=== PATIENT | female | born 1995 | race Caucasian/White ===

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

== ENCOUNTER 2017-02-16 21:14 | Outpatient (CLI) | payer MEDICAID ==
[~2017-02-16] VITALS: Ht 160 cm; Wt 64.2 kg
[~2017-02-16 21:14] MED LIST changes: -CEPH-443 PO; -NAPR-260 PO
[2017-02-16 22:00] VITALS: BP 109/59; PULSE 88
[2017-02-16] MEDS ORDERED: FOLI0.8C PO (22:04)
[2017-02-16] MEDS ORDERED: FERR134T PO (22:04)
[2017-02-16] MEDS ORDERED: CALC600T5 PO (22:04)
[2017-02-17 00:12] LABS: ADD UMIC YES; UR ASCORBIC ACID 40 mg/dL (NEGATIVE); UR BACTERIA FEW /HPF (NONE SEEN); UR BILIRUBIN (Dip) NEGATIVE (NEGATIVE); UR BLOOD (Dip) NEGATIVE (NEGATIVE); UR CLARITY CLOUDY (CLEAR); UR COLOR AMBER (YELLOW); UR GLUCOSE (Dip) NEGATIVE (NEGATIVE); UR KETONES (Dip) TRACE mg/dL (NEGATIVE); UR LEUKOCYTE ESTERASE (Dip) 2+ Leu/ul (NEGATIVE); UR MUCUS FEW /HPF (NONE SEEN); UR NITRITE (Dip) NEGATIVE (NEGATIVE); UR RBC 2 /HPF (0-5); UR SPECIFIC GRAVITY (Dip) 1.028 (1.003-1.030); UR SQUAMOUS EPITHELIAL CELL MANY /HPF (FEW); UR TOTAL PROTEIN (Dip) 1+ mg/dl (NEGATIVE); UR UROBILINOGEN (Dip) NEGATIVE (NEGATIVE)
--- NOTE | 2017-02-17 00:19 | RADRPT ---
PROCEDURE: Obstetrical ultrasound greater than 14 weeks CLINICAL INDICATION: labor. Evaluate amniotic fluid index TECHNIQUE: Real time sonographic imaging of the gravid uterus is performed transabdominally and mu ltiple static means scale and Doppler images are submitted for review as are measurements. The image s are reviewed on the PACS. COMPARISON: 09/26/2016 FINDINGS: The cervical os is closed with a normal cervical length of 3.1 cm. There is a single living intrauterine gestation in breech presentation. The heart beat is est imated at 154 bpm. Placenta is fundal and grade 1. There is no evidence of placenta previa or abruption. The amniotic fluid index is normal estimated at 14.16 cm. RPTAT:HJJR IMPRESSION: 1. Single viable intrauterine gestation in breech presentation, the cervical length estimated at 3.1 cm. 2. Normal amniotic fluid index of 14.1 cm. Physician Kristen Date Time Electronically viewed and signed by Physician Kristen on 02/17/2017 00:19 /
--- NOTE | 2017-02-17 03:54 | PN ---
Triage Information Date/Time February 17, 2017 Weeks of Gestation 29 weeks and 3 days : 1 Para: 0 Diabetes: none Hypertention: none Additional information 21-year-old with IUP at 29 weeks and 3 days presented with complaint of cramping and small amount of pinkish discharge after she wiped herself today. She reports her pain 7 out of 10. She denies any leaking of fluid. She denies any decreased movement. Patient reports that she had been hospitalized at [facility] for 3 days and about 2 weeks ago and she was discharged from the hospital. She was admitted for labor. Status post 2 doses of steroid. Records from [facility] obtained and confirmed. Objective Vital Signs Date Time Temp Pulse Resp B/P Pulse Ox O2 Delivery O2 Flow Rate FiO2 02/16/17 22:00 98.4 88 109/59 Room Air Heart Rate: 130's Contractions: >10 Minutes Apart Exam There is occasional contraction with some irritability noted in NST. General appearance: Alert and oriented 4. Patient does not appear to be in acute distress. Abdomen: Soft, gravid, nontender, fundal height consistent with gestational age. UA: Consistent with UTI NST: Category 1. Patient received p.o. hydration and a dose of Tylenol for her symptoms resolved. She denied any pain after adequate p.o. hydration Transvaginal cervical length performed that showed long cervix. Results/Medications Results 24 hrs Laboratory Tests Test 02/16/17 21:50 Urine Color PRAMOD Urine Clarity CLOUDY A Urine pH 6.0 Urine Specific [place] 1.028 Urine Ketones TRACE A Urine Nitrite NEGATIVE Urine Bilirubin NEGATIVE Urine Urobilinogen NEGATIVE Urine Leukocyte Esterase 2+ H Urine Microscopic RBC 2 Urine Microscopic WBC 41 H Urine Squamous Epithelial Cells MANY A Urine Bacteria FEW A Urine Mucus FEW A Urine Hemoglobin NEGATIVE Urine Glucose NEGATIVE Urine Total Protein 1+ H Imaging Results PROCEDURE: Obstetrical ultrasound greater than 14 weeks CLINICAL INDICATION: labor. Evaluate amniotic fluid index TECHNIQUE: Real time sonographic imaging of the gravid uterus is performed transabdominally and multiple static means scale and Doppler images are submitted for review as are measurements. The images are reviewed on the PACS. COMPARISON: 09/26/2016 FINDINGS: The cervical os is closed with a normal cervical length of 3.1 cm. There is a single living intrauterine gestation in breech presentation. The heart beat is estimated at 154 bpm. Placenta is fundal and grade 1. There is no evidence of placenta previa or abruption. The amniotic fluid index is normal estimated at 14.16 cm. RPTAT:HJJR IMPRESSION: 1. Single viable intrauterine gestation in breech presentation, the cervical length estimated at 3.1 cm. 2. Normal amniotic fluid index of 14.1 cm. Assessment/Plan IUP at 29 weeks and 3 days Uterine contraction. No evidence of labor Contractions due to UTI. Resolved with p.o. hydration and Tylenol We will treat with Keflex 500 mg p.o. 4 times daily for 7 days labor precaution and kick count and follow-up with her OB office in 1-2 days after discharge discussed. Advise about adequate p.o. hydration Patient verbalized understanding. ALYSON BARAJAS MD Feb 17, 2017 03:54
--- NOTE | 2017-02-17 04:27 | TRIAGE ---
OB Triage Datetime Report Generated by CPN: 02/17/2017 04:27 Datetime: 02/16/2017 22:57 Stage of : OB Triage Monitor Mode: External Quality: Mild Pattern: Normal: <= 5 Contractions in 10 Minutes Resting Tone [place]: Relaxed Heart Rate FHR Baseline Rate: 150 Monitor Mode: External US FHR Baseline Changes: No Baseline Change Variability: Moderate 6-25 bpm Datetime: 02/16/2017 22:38 Stage of : OB Triage Datetime: 02/16/2017 22:10 Stage of : OB Triage Monitor Mode: External Quality: Mild Pattern: Normal: <= 5 Contractions in 10 Minutes Resting Tone [place]: Relaxed Heart Rate FHR Baseline Rate: 150 Monitor Mode: External US FHR Baseline Changes: No Baseline Change Variability: Moderate 6-25 bpm Decelerations: Late Category: Category II Datetime: 02/16/2017 21:48 Time of Arrival: 02/16/2017 21:07 EGA: 29.3 Arrived By: Wheelchair Arrived From: Home Chief Complaint: w/ stated hx PTL c/o cramping and spotting Movement: Present Contractions: Irregular Time Contractions Began: 02/16/2017 20:00 Contractions: q10-15 Rupture of Membranes: Denies Vaginal Bleeding: Scant Vaginal Discharge: Present Recent Sexual Intercouse: Denies Abdominal Trauma: Not Applicable Patient Complaints: Cramping Additional Patient Complaints: Hx asthma. States was told LEATHA was 24 on 02/03 Time Provider Notified: 02/16/2017 22:57 Provider Notified: Dr Desouza Initial Plan: EFM, CVL,BPP, PO hydration Datetime: 02/16/2017 21:32 Stage of : OB Triage Maternal Assessment Level of Consciousness: Fully Conscious Headache: Denies Blurred Vision: No Respiratory Effort: Unlabored Nausea/Vomiting: Denies RUQ Epigastric Pain: Denies Facial Edema: None Labor Evaluation Frequency: placed Monitor Mode: External Resting Tone [place]: Relaxed Monitor Mode: External US Comments: FHT 150 Pain Assessment Pain Scale: 7 Pain Presence: Intermittent Pain Type: Cramping Pain Location: Abdomen Datetime: 12/22/2016 18:55 Stage of : OB Triage Maternal Assessment Level of Consciousness: Fully Conscious DTR's/Clonus: DTRs 1+ Headache: Denies Breath Sounds, Left: Clear and Equal Breath Sounds, Right: Clear and Equal Nausea/Vomiting: Denies RUQ Epigastric Pain: Denies Labor Evaluation Frequency: IRRITABILITY Monitor Mode: External Quality: Mild Pattern: Normal: <= 5 Contractions in 10 Minutes Heart Rate FHR Baseline Rate: 150 Monitor Mode: Doppler Pain Assessment Pain Scale: 4 Pain Presence: Constant Pain Type: Ache Pain Location: Left Flank Pain Goal: 3 Vaginal Exam Membrane Status: Intact Datetime: 12/22/2016 18:00 Stage of : OB Triage Maternal Assessment Level of Consciousness: Fully Conscious DTR's/Clonus: DTRs 1+ Headache: Denies Breath Sounds, Left: Clear and Equal Breath Sounds, Right: Clear and Equal Nausea/Vomiting: Denies RUQ Epigastric Pain: Denies Labor Evaluation Frequency: IRRITABILITY Monitor Mode: External Quality: Mild Pattern: Normal: <= 5 Contractions in 10 Minutes Heart Rate FHR Baseline Rate: 150 Monitor Mode: Doppler Pain Assessment Pain Scale: 4 Pain Presence: Constant Pain Type: Ache Pain Location: Left Flank Pain Goal: 3 Vaginal Exam Membrane Status: Intact Datetime: 12/22/2016 17:00 Heart Rate FHR Baseline Rate: 150 Monitor Mode: Doppler Datetime: 12/22/2016 16:11 Fall Risk Assessment Fall Score: 0 Fall Risk Score Definition: No Risk: No action required Datetime: 12/22/2016 16:10 EGA: 21.3
== END 2017-02-17 02:50 | disposition home or self-care (01) ==
LOC: OBT 21:14 → L-D 21:14 → OBT 02-17 02:50
PROVIDERS: ATTEND Obstetrics & Gynecology
DX: O26.893 Other specified pregnancy related conditions, third trimester (principal); Z3A.29 29 weeks gestation of pregnancy; R10.9 Unspecified abdominal pain; N89.8 Other specified noninflammatory disorders of vagina
CPT/HCPCS: 36415; 76815; 76817; 81001; Z7500; G0463

== ENCOUNTER 2017-03-31 11:07 | Outpatient (CLI) | payer MEDICAID ==
[~2017-03-31] VITALS: Ht 162.6 cm; Wt 68.2 kg
[~2017-03-31 11:07] MED LIST changes: -ACET500C5 PO; +CALC600T5 PO; +FERR134T PO; +FOLI0.8C PO; -PRENAT PO
[2017-03-31 11:44] VITALS: BP 101/58; PULSE 85; Ht 162.6 cm; Wt 68.2 kg
--- NOTE | 2017-03-31 12:48 | RADRPT ---
PROCEDURE: US OB biophysical profile. CLINICAL INDICATION: labor TECHNIQUE: Multiple sonographic images of the pelvis were obtained. The images were reviewed on a PACS workstation. COMPARISON: No prior studies are available for comparison. FINDINGS: There is a single viable intrauterine gestation. Cardiac activity is present with 157 beats per min [place]. There is a vertex presentation. The placenta is fundal. There is no evidence of placental abruption. There is a normal amount of amniotic fluid with an LEATHA = 16.1 cm. Biophysical profile: movement 2/2 tone 2/2. breathing 2/2 LEATHA 2/2 Total 03/24 RPTAT: AA . IMPRESSION: Normal biophysical profile. Physician Brandon Date Time Electronically viewed and signed by Physician Brandon on 03/31/2017 12:48 /
[2017-03-31] MEDS ORDERED: LACTATED RINGER'S 1,000 ML IV SCH (13:00)
[2017-03-31] MEDS ORDERED: TERBUTALINE 1 MG/ML INJ SC ONE (17:30)
--- NOTE | 2017-03-31 17:50 | PN ---
Triage Information Date/Time 36 weeks complaining of low back pain pelvic examination cervix long and closed vertex is -2 station biophysical profile 03/24 patient discharged home with labor instructions for follow-up at the clinic or if contractions more regular or stronger return to the hospital Reason for visit: Weeks of Gestation 36 /Para Diabetes: none Hypertention: none Objective Vital Signs Date Time Temp Pulse Resp B/P Pulse Ox O2 Delivery O2 Flow Rate FiO2 03/31/17 11:44 97.6 85 101/58 Heart Rate: 130's Contractions: None Results/Medications Medications Current Medications Lactated Ringer's (Lr) 1,000 ml @ 125 mls/hr Q8H IV Last administered on t 13:17; Admin Dose 125 MLS/HR; Start 03/31/17 at 13:00 Disposition: Discharge JOHN LOCKHART MD Mar 31, 2017 17:50
== END 2017-03-31 17:55 | disposition home or self-care (01) ==
LOC: OBT 11:07 → L-D 11:07 → OBT 17:55
PROVIDERS: ATTEND Obstetrics & Gynecology
DX: O26.893 Other specified pregnancy related conditions, third trimester (principal); Z3A.36 36 weeks gestation of pregnancy; M54.5 Low back pain
CPT/HCPCS: 36415; 76818; 96360; 96361; 96372; J3105; J7120; Z7500; G0463

== ENCOUNTER 2017-04-25 08:17 | Inpatient (IN) | payer MEDICAID ==
[~2017-04-25] VITALS: Ht 162.6 cm; Wt 72.0 kg
[2017-04-25 08:41] VITALS: Ht 162.6 cm; Wt 72.0 kg
--- NOTE | 2017-04-25 10:27 | TRIAGE ---
OB Triage Datetime Report Generated by CPN: 04/25/2017 10:27 Datetime: 04/25/2017 10:20 Vaginal Exam Dilatation (cms): 3.0 Effacement (%): 70 Station: -1 Exam By: [facility] Membrane Status: Ruptured Membranes Rupture Method: Artificial Amniotic Fluid Color: Clear Amniotic Fluid Amount: Moderate Datetime: 04/25/2017 10:00 Labor Evaluation Frequency: 2-6 Monitor Mode: External Duration (sec)2399: 40-180 Quality: Moderate Pattern: Normal: <= 5 Contractions in 10 Minutes Resting Tone [place]: Relaxed Heart Rate FHR Baseline Rate: 140 Monitor Mode: External US FHR Baseline Changes: No Baseline Change Variability: Moderate 6-25 bpm Accelerations: 15X15 Decelerations: None Category: Category I Pain Assessment Pain Scale: 4 Pain Presence: Intermittent Pain Type: Contraction; Ache Pain Location: Abdomen Pain Goal: 2 Pain Relief Measures: Comfort Measures Datetime: 04/25/2017 09:00 Labor Evaluation Frequency: OCC Monitor Mode: External Duration (sec)2399: 50-120 Quality: Moderate Pattern: Normal: <= 5 Contractions in 10 Minutes Resting Tone [place]: Relaxed Contraction Comments: Uterine irritability noted Heart Rate FHR Baseline Rate: 140 Monitor Mode: External US FHR Baseline Changes: No Baseline Change Variability: Moderate 6-25 bpm Accelerations: 15X15 Decelerations: None Category: Category I Datetime: 04/25/2017 08:42 Time of Arrival: 04/25/2017 07:55 EGA: 39.4 Arrived By: Ambulatory Arrived From: Home Chief Complaint: R/O Labor Movement: Present Contractions: Denies/Absent Rupture of Membranes: Denies Vaginal Bleeding: Normal Show Vaginal Discharge: Denies Recent Sexual Intercouse: Denies Abdominal Trauma: Not Applicable Patient Complaints: Contractions Time Provider Notified: 04/25/2017 09:55 Provider Notified: [facility] Initial Plan: NST, VE Datetime: 04/25/2017 08:40 Assessment Type: Triage Maternal Assessment Level of Consciousness: Fully Conscious DTR's/Clonus: DTRs 2+; No Clonus Headache: Denies Blurred Vision: No Respiratory Effort: Unlabored; Regular Rhythm; Equal Expansion Breath Sounds, Left: Clear and Equal Breath Sounds, Right: Clear and Equal Nausea/Vomiting: Denies RUQ Epigastric Pain: Denies Lower Extremities Edema: Bilateral Lower Extremities Degree: 1+ Upper Extremities Edema: None Degree: None Facial Edema: None Fall Risk Assessment History of Falling: (0) No Secondary Diagnosis: (0) No Ambulatory Aid: (0) Bedrest/Nurse Assist IV Therapy: (0) No Gait: (0) Normal/Bedrest/Immobile Mental Status: (0) Oriented to Own Ability Fall Score: 0 Fall Risk Score Definition: No Risk: No action required Datetime: 04/25/2017 08:39 Vaginal Exam Dilatation (cms): 2.0 Effacement (%): 50 Station: -3 Exam By: Melanie RN Datetime: 04/09/2017 10:10 Vaginal Exam Dilatation (cms): 1.5 Effacement (%): 50 Station: -3 Exam By: Dilia JUAREZ RN Membrane Status: Intact Datetime: 03/31/2017 17:43 Stage of : OB Triage Datetime: 03/31/2017 16:52 Labor Evaluation Frequency: 2-6 Monitor Mode: External Duration (sec)2399: 40-50 Pattern: Normal: <= 5 Contractions in 10 Minutes Resting Tone [place]: Relaxed Contraction Comments: STATES BARELY FEELS Heart Rate FHR Baseline Rate: 145 Monitor Mode: External US Variability: Moderate 6-25 bpm Decelerations: None Category: Category I Pain Assessment Pain Scale: 3 Pain Presence: Intermittent Pain Type: Cramping Pain Location: Abdomen Pain Goal: 3 Pain Relief Measures: Comfort Measures Datetime: 03/31/2017 15:51 Labor Evaluation Frequency: 4-5 Monitor Mode: External Duration (sec)2399: 50-60 Pattern: Normal: <= 5 Contractions in 10 Minutes Resting Tone [place]: Relaxed Heart Rate FHR Baseline Rate: 145 Monitor Mode: External US Variability: Moderate 6-25 bpm Accelerations: 10X10 Decelerations: None Category: Category I Pain Assessment Pain Scale: 4 Pain Presence: Intermittent Pain Type: Cramping Pain Goal: 3 Pain Relief Measures: Comfort Measures Datetime: 03/31/2017 14:48 Labor Evaluation Frequency: 3-5 Monitor Mode: External Duration (sec)2399: 50-60 Quality: Mild Pattern: Normal: <= 5 Contractions in 10 Minutes Resting Tone [place]: Relaxed Heart Rate FHR Baseline Rate: 135 Monitor Mode: External US Variability: Moderate 6-25 bpm Decelerations: None Category: Category II Pain Assessment Pain Scale: 4 Pain Presence: Intermittent Pain Type: Cramping Pain Location: Abdomen Pain Goal: 3 Datetime: 03/31/2017 13:40 Labor Evaluation Frequency: 4-6 Monitor Mode: External Duration (sec)2399: 40-60 Pattern: Normal: <= 5 Contractions in 10 Minutes Resting Tone [place]: Relaxed Heart Rate FHR Baseline Rate: 140 Monitor Mode: External US Variability: Moderate 6-25 bpm Decelerations: None Category: Category II Pain Assessment Pain Scale: 4 Pain Presence: Intermittent Pain Type: Cramping Pain Location: Abdomen Pain Goal: 3 Pain Relief Measures: Comfort Measures Datetime: 03/31/2017 12:43 Labor Evaluation Frequency: 4-6 Monitor Mode: External Duration (sec)2399: 40-60 Quality: Mild Pattern: Normal: <= 5 Contractions in 10 Minutes Resting Tone [place]: Relaxed Heart Rate FHR Baseline Rate: 150 Monitor Mode: External US Variability: Moderate 6-25 bpm Accelerations: 10X10 Decelerations: None Category: Category I Pain Assessment Pain Scale: 4 Pain Presence: Intermittent Pain Type: Cramping Pain Location: Abdomen Pain Goal: 3 Pain Relief Measures: Comfort Measures Datetime: 03/31/2017 12:27 Stage of : OB Triage Datetime: 03/31/2017 11:52 Stage of : OB Triage Datetime: 03/31/2017 11:40 Stage of : OB Triage Assessment Type: Triage Maternal Assessment Level of Consciousness: Fully Conscious DTR's/Clonus: DTRs 2+; No Clonus Headache: Denies Blurred Vision: No Respiratory Effort: Unlabored; Regular Rhythm; Equal Expansion Breath Sounds, Left: Clear and Equal Breath Sounds, Right: Clear and Equal Nausea/Vomiting: Denies RUQ Epigastric Pain: Denies Facial Edema: None Temperature Route: Axillary Fall Risk Assessment History of Falling: (0) No Secondary Diagnosis: (0) No Ambulatory Aid: (0) Bedrest/Nurse Assist IV Therapy: (0) No Gait: (0) Normal/Bedrest/Immobile Mental Status: (0) Oriented to Own Ability Fall Score: 0 Fall Risk Score Definition: No Risk: No action required Labor Evaluation Frequency: 5-7 Monitor Mode: External Duration (sec)2399: 50-60 Quality: Mild Pattern: Normal: <= 5 Contractions in 10 Minutes Resting Tone [place]: Relaxed Heart Rate FHR Baseline Rate: 140 Monitor Mode: External US Variability: Moderate 6-25 bpm Decelerations: Variable Category: Category II Pain Assessment Pain Scale: 6 Pain Presence: Intermittent Pain Type: Cramping; Contraction Pain Location: Abdomen; Back Pain Goal: 3 Pain Relief Measures: Comfort Measures Datetime: 03/31/2017 11:38 Time of Arrival: 03/31/2017 10:58 EGA: 36.0 Arrived By: Ambulatory Arrived From: Home Chief Complaint: BACK PAIN, DENIES BLEEDING OR LEAKING OF FLUID Movement: Decreased Contractions: Irregular Contractions: 5-6 Rupture of Membranes: Denies Vaginal Bleeding: None Vaginal Discharge: Denies Recent Sexual Intercouse: Denies Abdominal Trauma: Not Applicable Patient Complaints: Contractions; Cramping Time Provider Notified: 03/31/2017 11:55 Provider Notified: [facility] Initial Plan: MONITOR, IV HYDRATION, BPP, TERB X1 Datetime: 02/17/2017 02:37 Stage of : OB Triage Heart Rate FHR Baseline Rate: 145 FHR Baseline Changes: No Baseline Change Variability: Moderate 6-25 bpm Decelerations: None Datetime: 02/17/2017 01:56 Stage of : OB Triage Datetime: 02/17/2017 01:51 Stage of : OB Triage Quality: Mild Pattern: Normal: <= 5 Contractions in 10 Minutes Resting Tone [place]: Relaxed Heart Rate FHR Baseline Rate: 155 Monitor Mode: External US FHR Baseline Changes: No Baseline Change Variability: Moderate 6-25 bpm Category: Category I Datetime: 02/17/2017 00:46 Stage of : OB Triage Monitor Mode: External Quality: Mild Pattern: Normal: <= 5 Contractions in 10 Minutes Resting Tone [place]: Relaxed Heart Rate FHR Baseline Rate: 140 Monitor Mode: External US FHR Baseline Changes: No Baseline Change Variability: Moderate 6-25 bpm Category: Category I Pain Assessment Pain Scale: 0 Pain Presence: None/Denies Pain Type: N/A Datetime: 02/17/2017 00:00 Labor Evaluation Frequency: 2-10 Monitor Mode: External Duration (sec)2399: 20-40sec Quality: Mild Pattern: Normal: <= 5 Contractions in 10 Minutes Resting Tone [place]: Relaxed Heart Rate FHR Baseline Rate: 150 Monitor Mode: External US FHR Baseline Changes: No Baseline Change Variability: Moderate 6-25 bpm Datetime: 02/16/2017 23:37 Monitor Mode: External Quality: Mild Pattern: Normal: <= 5 Contractions in 10 Minutes Resting Tone [place]: Relaxed Heart Rate FHR Baseline Rate: 150 Monitor Mode: External US FHR Baseline Changes: No Baseline Change Variability: Moderate 6-25 bpm Datetime: 02/16/2017 21:48 EGA: 29.6 Datetime: 12/22/2016 16:11 Fall Score: 0 Fall Risk Score Definition: No Risk: No action required Datetime: 12/22/2016 16:10 EGA: 21.6
[2017-04-25] MEDS ORDERED: LACTATED RINGER'S 1,000 ML IV PRN (10:50)
[2017-04-25] MEDS ORDERED: IBUPROFEN 600 MG TAB PO PRN (11:00)
[2017-04-25] MEDS ORDERED: METHYLERGONOVINE 0.2 MG INJ IM PRN (11:00)
[2017-04-25] MEDS ORDERED: MISOPROSTOL 200 MCG TAB PR PRN (11:00)
[2017-04-25] MEDS ORDERED: CARBOPROST 250 MCG INJ IM PRN (11:00)
[2017-04-25] MEDS ORDERED: LIDOCAINE 1% (MPF) 30 ML INJ INJ PRN (11:00)
[2017-04-25] MEDS ORDERED: BUTORPHANOL 2 MG INJ IV PRN (11:00)
[2017-04-25] MEDS ORDERED: OXYTOCIN 30 UNITS/LR 500 ML IV SCH ×3 (11:00)
[2017-04-25] MEDS ORDERED: OXYTOCIN 30 UNITS/LR 500 ML IV PRN (11:00)
[2017-04-25] MEDS: LACTATED RINGER'S 1,000 ML IV SCH ×3 (11:22→20:55)
[2017-04-25 11:48] LABS: BASOPHILS % 0.2 % (0.0-2.0); EOSINOPHILS # 0.1 10^3/ul (0.0-0.5); EOSINOPHILS % 1.5 % (0.0-7.0); HEMATOCRIT 32.7 % (37.0-47.0); HEMOGLOBIN 10.2 g/dl (12.0-16.0); LYMPHOCYTES # 1.9 10^3/ul (0.8-2.9); LYMPHOCYTES % 23.4 % (18.0-55.0); MEAN CORPUSCULAR HEMOGLOBIN 25.6 pg (29.0-33.0); MEAN CORPUSCULAR HGB CONC 31.2 g/dl (32.0-37.0); MEAN CORPUSCULAR VOLUME 82.2 fl (72.0-104.0); MEAN PLATELET VOLUME 12.4 fl (7.4-10.4); MONOCYTE # 0.8 10^3/ul (0.3-0.9); NEUTROPHILS % 63.7 % (30.0-74.0); PLATELET COUNT 184 10^3/UL (140-415); RED BLOOD COUNT 3.98 10^6/ul (4.20-5.40); RED CELL DISTRIBUTION WIDTH 14.8 % (11.5-14.5); WHITE BLOOD COUNT 8.2 10^3/ul (4.8-10.8)
[2017-04-25 12:00] LABS: INR 0.91; PROTIME 12.2 Sec (12.2-14.2)
[2017-04-25 12:01] LABS: PARTIAL THROMBOPLASTIN TIME 29.1 Sec (25.0-35.0)
[2017-04-25] MEDS ORDERED: ONDANSETRON 4 MG INJ IV PRN (17:00)
[2017-04-25] MEDS ORDERED: EPHEDrine SULFATE 50 MG/5 ML SYG IV PRN (17:00)
[2017-04-25] MEDS ORDERED: DIPHENHYDRAMINE 50 MG INJ IV PRN (17:00)
[2017-04-25] MEDS ORDERED: NALOXONE (0.4 MG/ML) INJ IV PRN (17:00)
[2017-04-25] MEDS: FENTAnyl 2MCG/ML-ROPIV 0.2% 100 ML BAG EPI SCH ×2 (17:18→23:23)
[2017-04-25] MEDS ORDERED: ALBUTEROL 18 GM INHALER INH ONE (18:30)
[2017-04-25] MEDS ORDERED: TERBUTALINE 1 MG/ML INJ SC ONE (22:30)
[2017-04-25] MEDS ORDERED: MINERAL OIL LIGHT 10 ML VIAL TOP PRN (22:30)
[2017-04-25] MEDS ORDERED: MINERAL OIL LIGHT 10 ML VIAL ONE (22:47)
[2017-04-26] MEDS: LACTATED RINGER'S 1,000 ML IV SCH (01:35)
--- NOTE | 2017-04-26 07:06 | LDN ---
Date/Time of Note Date/Time of Note DATE: 04/26/17 TIME: 07:02 Delivery Summary Vacuum assisted vaginal delivery for OP position of a viable baby girl weighing 8# 10 oz, 20" long and with Apgars of 8/9. Weeks of Gestation 39w 5d Assisted Vaginal Delivery: Vacuum Placenta Delivered: Spontaneously Meconium: none Episiotomy: No Perineal laceration: 2 Laceration repair: SECOND DEGREE PERINEAL LACERATION REPAIRED WITH 2-0 CHROMIC. Anesthesia type: Epidural Estimated blood loss: 350 Sponge & Needle done & correct: Yes All needle counts correct: Yes Any foreign bodies felt in the: No (vagina) Problems: Infant Delivery Information Sex Infant Sex: female Apgars 1 Minute: 8 5 Minute: 9 Suctioning Nose & mouth suctioned at nithya: Yes Delee suction performed: No Umbilical Cord Umbilical cord with: 3 Vessels Cord presentations: no nuchal cord Cord Blood was obtained: Yes Mother & Baby Disposition Disposition Mom & Baby to Maternity; Good: Yes Baby to NICU: No MARGARITO ADKINS MD Apr 26, 2017 07:06
[2017-04-26] MEDS: LACTATED RINGER'S 1,000 ML IV* SCH ×2 (07:12→15:12)
[2017-04-26] MEDS ORDERED: LACTATED RINGER'S 1,000 ML IV* SCH (07:12)
--- NOTE | 2017-04-26 07:12 | HP ---
Date/Time of Note Date/Time of Note DATE: 04/26/17 TIME: 07:06 OB - History Hx of Present Free Text/Dictation 22 y.o. G1 with an IUP at 39w 5d came in in labor. Chief Complaint: Labor. Estimated Due Date: Apr 28, 2017 : 1 Para: 0 Care: Good Care Ultrasounds: Normal mid trimester US Obstetrical Complications: None Medical Complications: None Other Concerns: PMHx: asthma. PSHx: none. All: PCN. Past Family/Social History * Past Medical, Surgical, Family and Obstetric Histories reviewed from chart. Blood Type: O+ Rubella: immune RPR/VDRL: Negative GBS Status: Negative HBsAG: Negative OB Admission Exam Vital Signs Vital Signs 122/74 98.5 Physical Exam HEENT: WNL Heart: Rhythm Normal Lungs: Clear Abdomen: WNL Extremities: Normal Reflexes: Normal Cervical Dilatation: 2cm Effacement: 50% Station: -3 Membranes: Intact Amniotic Fluid: Clear Heart Rate: 150's Accelerations: Accelerations Present Decelerations: Variable Decelerations Varibility: Moderate Contractions on Admission: < 5 Minutes Apart Last 72 hourBlood Glucose Bedside Glucose - 72 Hours Test 04/26/17 04:53 Bedside Glucose 118mg/dL (70-220) Last 72 hours Lab Results CBC & BMP 04/25/17 11:00 OB Assessment/Plan Other Assessment: Labor. Plan: Other (Augmentation of labor.) Induction Method: per Pitocin Protocol MARGARITO ADKINS MD Apr 26, 2017 07:12
[2017-04-26] MEDS ORDERED: MISOPROSTOL 200 MCG TAB PR PRN ×2 (07:30)
[2017-04-26] MEDS ORDERED: OXYTOCIN 30 UNITS/LR 500 ML IV SCH (07:30)
[2017-04-26] MEDS ORDERED: OXYTOCIN 30 UNITS/LR 500 ML IV PRN ×2 (07:30)
[2017-04-26] MEDS ORDERED: LANOLIN 7 GM TUBE TOP PRN (07:30)
[2017-04-26] MEDS ORDERED: CARBOPROST 250 MCG INJ IM PRN ×2 (07:30)
[2017-04-26] MEDS ORDERED: METHYLERGONOVINE 0.2 MG INJ IM PRN ×2 (07:30)
[2017-04-26 08:50] VITALS: BP 130/73; PULSE 81; RESP 18
[2017-04-26] MEDS: BENZOCAINE 20% 56 ML SPRAY TOP PRN (10:00)
[2017-04-26 11:30] VITALS: BP 125/73; PULSE 97; RESP 18
[2017-04-26] MEDS: IBUPROFEN 600 MG TAB PO SCH ×2 (12:18→17:45)
[2017-04-26 16:00] VITALS: BP 125/73; PULSE 94; RESP 18
[2017-04-26] MEDS ORDERED: ALBUTEROL 18 GM INHALER INH PRN (17:30)
[2017-04-26 20:30] VITALS: BP 121/74; PULSE 92; RESP 18
[2017-04-27] MEDS: IBUPROFEN 600 MG TAB PO SCH ×4 (00:10→17:41)
[2017-04-27 04:00] VITALS: BP 110/56; PULSE 83; RESP 18
[2017-04-27 08:41] LABS: BASOPHILS % 0.2 % (0.0-2.0); EOSINOPHILS # 0.1 10^3/ul (0.0-0.5); EOSINOPHILS % 0.7 % (0.0-7.0); HEMATOCRIT 25.6 % (37.0-47.0); HEMOGLOBIN 8.3 g/dl (12.0-16.0); LYMPHOCYTES # 2.5 10^3/ul (0.8-2.9); LYMPHOCYTES % 15.6 % (18.0-55.0); MEAN CORPUSCULAR HEMOGLOBIN 26.8 pg (29.0-33.0); MEAN CORPUSCULAR HGB CONC 32.4 g/dl (32.0-37.0); MEAN CORPUSCULAR VOLUME 82.6 fl (72.0-104.0); MEAN PLATELET VOLUME 12.4 fl (7.4-10.4); MONOCYTE # 1.3 10^3/ul (0.3-0.9); MONOCYTES % 7.9 % (0.0-13.0); NEUTROPHILS % 74.5 % (30.0-74.0); PLATELET COUNT 158 10^3/UL (140-415); RED CELL DISTRIBUTION WIDTH 15.2 % (11.5-14.5); WHITE BLOOD COUNT 16.2 10^3/ul (4.8-10.8)
[2017-04-27 08:45] VITALS: BP 102/55; PULSE 82; RESP 19
[2017-04-27] MEDS: HYDROCODONE/APAP (5/325) TAB PO PRN ×2 (09:12→12:57)
[2017-04-27 15:45] VITALS: BP 100/59; PULSE 82; RESP 18
--- NOTE | 2017-04-27 18:21 | QN ---
Documentation Comment No complaint Afebrile VSS Fundus firm Lochia scant Perineum edematous PPD #1 Stable Continue present care. MANOLO WIGGINS MD Apr 27, 2017 18:21
[2017-04-27] MEDS ORDERED: MAGNESIUM HYDROXIDE 30ML CUP PO ONE (18:30)
[2017-04-27 19:55] VITALS: BP 115/65; PULSE 86; RESP 18
[2017-04-27] MEDS: SENNA TAB PO SCH (21:39)
[2017-04-28] MEDS: IBUPROFEN 600 MG TAB PO SCH ×3 (00:05→12:30)
[2017-04-28 04:10] VITALS: BP 104/63; PULSE 86; RESP 18
[2017-04-28 08:00] VITALS: BP 108/68; PULSE 79; RESP 18
[2017-04-28] MEDS: SENNA TAB PO SCH (08:03)
[2017-04-28] MEDS: BENZOCAINE 20% 56 ML SPRAY TOP PRN (08:32)
[2017-04-28] MEDS: HYDROCODONE/APAP (5/325) TAB PO PRN (08:40)
[2017-04-28] MEDS ORDERED: DIPHTH/TET/ACEL PERTUSS (ADULT) 0.5 ML VIAL IM* ONE (09:00)
[2017-04-28 09:57] LABS: BASOPHILS % 0.2 % (0.0-2.0); EOSINOPHILS # 0.2 10^3/ul (0.0-0.5); EOSINOPHILS % 1.9 % (0.0-7.0); HEMATOCRIT 26.8 % (37.0-47.0); HEMOGLOBIN 8.1 g/dl (12.0-16.0); LYMPHOCYTES # 2.5 10^3/ul (0.8-2.9); LYMPHOCYTES % 22.4 % (18.0-55.0); MEAN CORPUSCULAR HEMOGLOBIN 25.5 pg (29.0-33.0); MEAN CORPUSCULAR HGB CONC 30.2 g/dl (32.0-37.0); MEAN CORPUSCULAR VOLUME 84.3 fl (72.0-104.0); MONOCYTE # 0.8 10^3/ul (0.3-0.9); MONOCYTES % 6.9 % (0.0-13.0); NEUTROPHILS % 66.9 % (30.0-74.0); PLATELET COUNT 163 10^3/UL (140-415); RED BLOOD COUNT 3.18 10^6/ul (4.20-5.40); RED CELL DISTRIBUTION WIDTH 15.2 % (11.5-14.5); WHITE BLOOD COUNT 11.4 10^3/ul (4.8-10.8)
--- NOTE | 2017-04-28 13:09 | DS ---
Date/Time of Note Date/Time of Note DATE: 04/28/17 TIME: 13:06 Obstetrical Discharge Record Final Diagnosis Final Diagnosis: Term delivered Vaginal Delivery Obstetrical Delivery: Vacuum Extraction Condition on Discharge Physical Assessment Voiding: Yes Bowel Movement: Yes Breast: Soft, non-tender Fundus: Firm Episiotomy: Perineum edematous and remains stable. Calf Tenderness: No Patient Condition: Stable MANOLO WIGGINS MD Apr 28, 2017 13:09
== END 2017-04-28 15:15 | disposition home or self-care (01) | DRG 775 ==
LOC: OBT 08:17 → L-D 08:17 → OBT 10:25 → L-D 10:25 → PP1 04-26 08:43
PROVIDERS: ADMIT Obstetrics & Gynecology; ATTEND Obstetrics & Gynecology
PROC: 4A1HX4Z Monitoring of Products of Conception, Cardiac Electrical Activity, External Approach (ICD-10-PCS; 2017-04-25)
PROC: 10D07Z6 Extraction of Products of Conception, Vacuum, Via Natural or Artificial Opening (ICD-10-PCS; principal; 2017-04-26)
PROC: 0KQM0ZZ Repair Perineum Muscle, Open Approach (ICD-10-PCS; 2017-04-26)
PROC: 3E0234Z Introduction of Serum, Toxoid and Vaccine into Muscle, Percutaneous Approach (ICD-10-PCS; 2017-04-28)
DX: O76 Abnormality in fetal heart rate and rhythm complicating labor and delivery (principal); O99.52 Diseases of the respiratory system complicating childbirth; J45.909 Unspecified asthma, uncomplicated; Z37.0 Single live birth; Z3A.39 39 weeks gestation of pregnancy; O70.1 Second degree perineal laceration during delivery; Z88.0 Allergy status to penicillin; Z23 Encounter for immunization
CPT/HCPCS: 82962; 85025; 85610; 85730; 86592; 86900; 86901; 87340; 90715; 99464; G0463; J2405; J2590; J3010; J7120

== ENCOUNTER 2017-04-30 12:59 | Emergency (ER) | payer MEDICAID ==
[~2017-04-30] VITALS: Ht 160 cm; Wt 68.0 kg
[2017-04-30 13:03] VITALS: Ht 160 cm; Wt 68.0 kg
--- NOTE | 2017-04-30 15:05 | ERD ---
ER Documentation Chief Complaint Date/Time DATE: 04/30/17 TIME: 15:02 Chief Complaint PAIN AND SWELLING AND DISCHARGES @ [facility] HPI [id number] female who is status post vaginal delivery from 2 days ago with an episiotomy comes to emergency room with swelling to her vaginal region as well as inability to void. Patient states that the last time she was voided was yesterday. Denies fevers, chills, chest pain, dizziness. ROS All systems reviewed and are negative except as per history of present illness. Medications Home Meds Reported Medications Folic Acid (Folic Acid) 0.8 Mg Capsule, 0.8 MG PO DAILY, CAP 02/16/17 Calcium Carbonate (CALCIUM) 600 Mg Tablet, 600 MG PO DAILY, TAB 02/16/17 Ferrous Sulfate (Iron) 134 Mg Tablet, 134 MG PO DAILY, TAB 02/16/17 Allergies Allergies: Coded Allergies: Penicillins (Verified Allergy, Intermediate, SOB, 02/16/17) PMhx/Soc Hx Respiratory Disorders: Yes (asthma) Hx Miscellaneous Medical Probl: Yes (cholecystitis) Hx Alcohol Use: No Hx Substance Use: No Hx Tobacco Use: No Smoking Status: Never smoker Physical Exam Vitals Vital Signs Date Time Temp Pulse Resp B/P Pulse Ox O2 Delivery O2 Flow Rate FiO2 04/30/17 13:03 97.9 86 19 118/67 100 Physical Exam General: Well-developed, well-nourished. The patient appears in no acute distress. HEENT: Head is normocephalic, atraumatic. No scleral icterus\ Neck: Supple. Nontender. Lungs: Clear to auscultation. Normal air movement. Heart: Regular rate and rhythm. S1 and S2 are normal. No murmurs, gallops, or rubs. Abdomen: Soft, suprapubic is appreciated with palpation, nondistended. Bowel sounds are normoactive. : Bilaterally very edematous, there is no fluctuance, erythema. Episiotomy is intact with suture in place on the right side. There is no bleeding. No odor. Extremities: No clubbing or cyanosis. Normal pulses. Moving extremities x 4. No weakness. Neurologic: Alert and oriented 3. No focal deficits. Skin: Normal turgor. No rash or lesions. Procedures/MDM 22-year-old female comes emergency department status post vaginal delivery presenting with urinary retention. Episiotomy is intact, without dehiscence or signs of infection. Edema also likely related to postoperative findings, normal , no abscess. Garcia was placed, 350 cc of urine were removed and the patient states that she is feeling much better. Patient is to return if she has any worsening symptoms. This is likely urinary retention related to post operative related postoperatively. There are no signs of infection, dehiscence, sepsis. The case was reviewed and discussed with Dr. Mckeon who agrees with the plan of care including labs, treatment, and advanced imaging as appropriate. Departure Diagnosis: Primary Impression: Post-op pain Additional Impression: Urinary retention Condition: Good Patient Instructions: Post Op Wound Check, Pain, Urinary Retention, Female TAVON EVANS PA-C Apr 30, 2017 15:05
== END 2017-04-30 16:51 | disposition home or self-care (01) ==
LOC: FTE 12:59
DX: O90.89 Other complications of the puerperium, not elsewhere classified (principal); R33.9 Retention of urine, unspecified; G89.18 Other acute postprocedural pain; O99.53 Diseases of the respiratory system complicating the puerperium; J45.909 Unspecified asthma, uncomplicated

== ENCOUNTER 2018-07-29 16:36 | Emergency (ER) | END 2018-07-29 19:05 | disposition home or self-care (01) ==